=== PATIENT | male | born 1990 | race African-American/Black ===

== ENCOUNTER 2020-09-17 09:44 | Emergency (ER) | payer SELFPAY | END 2020-09-17 10:56 | disposition home or self-care (01) | LOC: CSHERS 09:44 | DX: R11.2 Nausea with vomiting, unspecified (principal); R19.7 Diarrhea, unspecified; J45.909 Unspecified asthma, uncomplicated | CPT/HCPCS: 99283 ==

== ENCOUNTER 2020-10-02 12:08 | Emergency (ER) | payer SELFPAY | END 2020-10-02 12:46 | disposition home or self-care (01) | LOC: CSHERS 12:08 | DX: J45.901 Unspecified asthma with (acute) exacerbation (principal) | CPT/HCPCS: 99284 ==

== ENCOUNTER 2021-12-12 09:32 | Emergency (ER) | payer SELFPAY | END 2021-12-12 10:44 | disposition home or self-care (01) | LOC: CSHERS 09:32 | DX: M54.9 Dorsalgia, unspecified (principal); Z20.822 Contact with and (suspected) exposure to COVID-19 | CPT/HCPCS: 99283; U0003; U0005 ==

== ENCOUNTER 2022-08-05 10:07 | Emergency (ER) | payer SELFPAY ==
[2022-08-05 12:17] LABS: SARS-CoV-2 NAA Rapid Test Not Detected (NotDetected)
== END 2022-08-05 12:38 | disposition home or self-care (01) ==
LOC: CSHERS 10:07
DX: B34.9 Viral infection, unspecified (principal); F17.210 Nicotine dependence, cigarettes, uncomplicated; Z20.822 Contact with and (suspected) exposure to COVID-19
CPT/HCPCS: 99283

== ENCOUNTER 2022-08-26 12:11 | Emergency (ER) | payer SELFPAY ==
[2022-08-26 13:09] LABS: #Eosinphils 0.1 10x3/uL (0.0-0.5); #Monocytes 0.4 10x3/uL (0.0-1.1); #Neutrophils 3.6 10x3/uL (1.5-8.4); %Basophils 0.3 % (0.0-2.0); %Monocytes 6.1 % (0.0-10.0); %Neutrophils 60.3 % (40.0-75.0); Hemoglobin 13.6 g/dL (13.5-17.5); Mean Corpuscular Hemoglobin 29.8 pg (27.0-33.0); Mean Corpuscular Volume 87.5 fl (81.2-95.1); Mean Platelet Volume 10.9 fl (7.4-10.4); Platelet Count 220 10x3/uL (150-450); RBC Distribution Width 12.3 % (11.5-14.5); Red Blood Cell (RBC) Count 4.57 10x6/uL (4.32-5.72); White Blood Cell (WBC) Count 5.9 10x3/uL (3.5-10.5)
[2022-08-26 13:23] LABS: SARS-CoV-2 NAA Rapid Test Not Detected (NotDetected)
[2022-08-26 13:29] LABS: ALT (SGPT) 25 U/L (8-55); AST (SGOT) 27 U/L (5-34); Albumin 4.2 g/dL (3.5-5.0); Alkaline Phosphatase 74 U/L (40-110); Anion Gap 12 mmol/L (10-20); BUN (Urea Nitrogen) 8 mg/dL (8.9-20.6); Bilirubin, Total 0.6 mg/dL (0.2-1.2); Calc. Creatinine Clearance 0 mL/min (70-130); Calcium 9.3 mg/dL (7.8-10.44); Carbon Dioxide 23 mmol/L (22-29); Chloride 107 mmol/L (98-107); Estimated GFR 113; Globulin 3.1 g/dL (2.4-3.5); Glucose 99 mg/dL (70-105); Potassium 4.1 mmol/L (3.5-5.1); Protein, Total 7.3 g/dL (6.0-8.3); Sodium 138 mmol/L (136-145)
[2022-08-26 14:10] LABS: Bilirubin Neg (Negative); Blood, Urine Negative (Negative); Clarity Clear (Clear); Glucose, Urine (Dipstick) Normal (Negative); Ketone, Urine Negative (Negative); Leukocyte Negative (Negative); Nitrite Negative (Negative); Protein, Urine (Dipstick) Negative (Neg-Trace); Specific Gravity, Urine 1.015 (1.005-1.030); Urobilinogen Normal mg/dL (Less than 2); pH, Urine 6.5 (5.0-9.0)
== END 2022-08-26 14:20 | disposition home or self-care (01) ==
LOC: CSHERS 12:11
DX: B34.9 Viral infection, unspecified (principal); R19.7 Diarrhea, unspecified; Z20.822 Contact with and (suspected) exposure to COVID-19; F17.210 Nicotine dependence, cigarettes, uncomplicated
CPT/HCPCS: 36415; 80053; 81003; 85025; 99284

== ENCOUNTER 2022-09-15 07:36 | Emergency (ER) | payer SELFPAY ==
[2022-09-15 08:38] LABS: SARS-CoV-2 NAA Rapid Test Not Detected (NotDetected)
[2022-09-15] MEDS ORDERED: Dexamethasone 10 MG/ML VIAL ONE (08:47)
== END 2022-09-15 09:00 | disposition home or self-care (01) ==
LOC: CSHERS 07:36
DX: B34.9 Viral infection, unspecified (principal); F17.210 Nicotine dependence, cigarettes, uncomplicated; Z20.822 Contact with and (suspected) exposure to COVID-19
CPT/HCPCS: 99283; J1100

== ENCOUNTER 2022-10-13 08:43 | Emergency (ER) | payer SELFPAY ==
[2022-10-13 10:47] LABS: #Eosinphils 0.3 10x3/uL (0.0-0.5); #Monocytes 0.5 10x3/uL (0.0-1.1); #Neutrophils 2.2 10x3/uL (1.5-8.4); %Basophils 0.5 % (0.0-2.0); %Eosinophils 5.8 % (0.0-6.0); %Lymphocytes 44.6 % (18.0-47.0); %Monocytes 8.7 % (0.0-10.0); %Neutrophils 40.2 % (40.0-75.0); Hemoglobin 13.9 g/dL (13.5-17.5); Mean Corpuscular HGB CONC 35.1 g/dL (32.0-36.0); Mean Corpuscular Hemoglobin 30.1 pg (27.0-33.0); Mean Corpuscular Volume 85.7 fl (81.2-95.1); Mean Platelet Volume 10.7 fl (7.4-10.4); Platelet Count 213 10x3/uL (150-450); RBC Distribution Width 12.4 % (11.5-14.5); Red Blood Cell (RBC) Count 4.62 10x6/uL (4.32-5.72); White Blood Cell (WBC) Count 5.5 10x3/uL (3.5-10.5)
[2022-10-13 11:04] LABS: Anion Gap 12 mmol/L (10-20); BUN (Urea Nitrogen) 9 mg/dL (8.9-20.6); CK (CPK) 250 U/L (30-200); Calc. Creatinine Clearance 0 mL/min (70-130); Calcium 9.1 mg/dL (7.8-10.44); Carbon Dioxide 24 mmol/L (22-29); Chloride 106 mmol/L (98-107); Estimated GFR 119; Glucose 97 mg/dL (70-105); Sodium 138 mmol/L (136-145)
== END 2022-10-13 12:11 | disposition home or self-care (01) ==
LOC: CSHERS 08:43
DX: M79.10 Myalgia, unspecified site (principal); R53.83 Other fatigue; J45.909 Unspecified asthma, uncomplicated; F17.210 Nicotine dependence, cigarettes, uncomplicated
CPT/HCPCS: 36415; 80048; 82550; 83735; 85025; 99283

== ENCOUNTER 2022-12-22 02:43 | Emergency (ER) | payer SELFPAY ==
[2022-12-22] MEDS ORDERED: Ipratropium/Albuterol 3 ML NEB ONE (03:01)
[2022-12-22] MEDS ORDERED: predniSONE 20 MG TAB ONE (03:01)
== END 2022-12-22 04:55 | disposition home or self-care (01) ==
LOC: CSHERS 02:43
DX: J45.901 Unspecified asthma with (acute) exacerbation (principal); F17.210 Nicotine dependence, cigarettes, uncomplicated
CPT/HCPCS: 94644; 94760; J7512; J7611; J7620